=== PATIENT | female | born 1965 | race Two or more races ===

== ENCOUNTER 2019-01-11 06:06 | Emergency (ER) | payer OTHER ==
[~2019-01-11] VITALS: Ht 152.4 cm; Wt 77.1 kg
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
[2019-01-11] MEDS ORDERED: IBUPROFEN 200 MG TABLET. PO ONE (06:45)
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
[2019-01-11 07:42] VITALS: BP 136/66
== END 2019-01-11 07:49 | disposition home or self-care (01) ==
LOC: ER 06:06
DX: S16.1XXA Strain of muscle, fascia and tendon at neck level, initial encounter (principal); E03.9 Hypothyroidism, unspecified; Z88.0 Allergy status to penicillin; V43.52XA Car driver injured in collision with other type car in traffic accident, initial encounter; Y93.I9 Activity, other involving external motion; Y92.488 Other paved roadways as the place of occurrence of the external cause; Y99.8 Other external cause status
CPT/HCPCS: 72040; 99284

== ENCOUNTER 2019-10-11 21:18 | Inpatient (IN) | payer SELFPAY ==
[~2019-10-11] VITALS: Ht 157.5 cm; Wt 72.7 kg
--- NOTE | 2019-10-11 21:46 | PHYS DOC ---
Past Medical History Past Medical History: Hypothyroid Additional Past Medical Histor: thyroid diseasehypothyroidism Smoking Status: Never Smoker Alcohol Use: None Drug Use: None General Adult EDM: Chief Complaint: HEADACHE HPI: HPI: Patient is a 54 year old female who presents with complaint of headache and feeling hot all over after being at work where it was very hot and she had no water to drink. Patient states that she had poured a pitcher of water overhead but still feels hot all over. She states that her headache is over her entire head including her eyes and states that it is a 9 out of 10. She denies any nausea or vomiting. She denies any focal weakness. [] Review of Systems: Review of Systems: Constitutional: Denies fever or chills. [] Eyes: Denies change in visual acuity. [] Respiratory: Denies cough or shortness of breath. [] Cardiovascular: Denies chest pain or edema. [] Musculoskeletal: Denies back pain or joint pain. [] Integument: Denies rash. [] Neurologic: Complains of headache without focal weakness or sensory changes. [] A full 10 point review of systems has been reviewed and is otherwise negative. Heart Score: Risk Factors: Risk Factors: DM, Current or recent (<one month) smoker, HTN, HLP, family history of CAD, obesity. Risk Scores: Score 0 - 3: 2.5% MACE over next 6 weeks - Discharge Home Score 4 - 6: 20.3% MACE over next 6 weeks - Admit for Clinical Observation Score 7 - 10: 72.7% MACE over next 6 weeks - Early Invasive Strategies Allergies: Allergies: Allergies Coded Allergies Type Severity Reaction Last Updated Verified Penicillins Allergy Unknown 01/11/19 Yes Physical Exam: PE: Constitutional: Well developed, well nourished, no acute distress, non-toxic appearance. [] HENT: Normocephalic, atraumatic, bilateral external ears normal, oropharynx moist, no oral exudates, nose normal. [] Eyes: PERRLA, EOMI, conjunctiva normal, no discharge. [] Neck: Normal range of motion, no tenderness, supple. [] Cardiovascular: Regular rate and rhythm [] Lungs & Thorax: Bilateral breath sounds clear to auscultation [] Abdomen: Bowel sounds normal, soft, no tenderness. [] Skin: Warm, dry, no erythema, no rash. [] Extremities: No tenderness, no cyanosis, no clubbing, ROM intact. [] Neurologic: Alert and oriented X 3, no focal deficits noted. [] EKG: EKG: [] Radiology/Procedures: Radiology/Procedures: []PROCEDURE: CT HEAD WO CONTRAST Exam: CT head INDICATION: Headache TECHNIQUE: Sequential axial images through the head were obtained without the administration of IV contrast. Comparisons: None FINDINGS: No focal parenchymal lesion or hemorrhage is identified. There is no midline shift or sulcal effacement. No acute vascular territory infarction is identified. Rollins-white distinction is preserved. The ventricular system is within normal limits without compression hydrocephalus. The basal cisterns are well maintained. The visualized portions of the paranasal sinuses and mastoid air cells are well-pneumatized. No acute fractures. IMPRESSION: No acute intracranial abnormality. Exposure: One or more of the following in the visualized dose reduction techniques were utilized for this examination: 1. Automated exposure control 2. Adjustment of the MA and/or KV according to patient size Use of iterative of reconstructive technique Electronically signed by: Cyrus Heredia MD (10/11/2019 10:12 PM) [id number] Course & Med Decision Making: Course & Med Decision Making Pertinent Labs and Imaging studies reviewed. (See chart for details) [] Dragon Disclaimer: Dragon Disclaimer: This electronic medical record was generated, in whole or in part, using a voice recognition dictation system. Departure Departure Impression: Primary Impression: Hyponatremia Additional Impression: Headache Qualified Codes: R51 - Headache Disposition: 09 ADMITTED INPATIENT Admitting Physician: HIMS Condition: IMPROVED Referrals: JUSTINE HUFFMAN MD (PCP) Justicifation of Admission Dx: Justifications for Admission: Justification of Admission Dx: Yes Comments: Patient sodium 121 with neurological complaint of headache. NARENDRA GIBSON Jr. DO Oct 11, 2019 21:46
[2019-10-11 21:56] LABS: BILIRUBIN,URINE NEGATIVE (NEG); CLARITY,URINE CLEAR; COLOR,URINE YELLOW; NITRITE,URINE NEGATIVE (NEG); PH,URINE 7.5 (<5.0-8.0); PROTEIN,URINE NEGATIVE (NEG-TRACE); UROBILINOGEN,URINE 0.2 mg/dL (0.2 mg/dL)
[2019-10-11 21:57] LABS: BASO # 0.1 x10^3/uL (0.0-0.2); BASO % 1 % (0-3); EOS # 0.1 x10^3/uL (0.0-0.7); EOS % 1 % (0-3); HEMATOCRIT 36.2 % (36.0-47.0); HEMOGLOBIN 12.8 g/dL (12.0-15.5); LYMPH # 2.9 x10^3/uL (1.0-4.8); LYMPH % 28 % (24-48); MEAN CORPUSCULAR HEMOGLOBIN 31 pg (25-35); MEAN CORPUSCULAR HGB CONC 35 g/dL (31-37); MEAN CORPUSCULAR VOLUME 87 fL (79-100); MONO # 0.8 x10^3/uL (0.0-1.1); MONO % 8 % (0-9); NEUT # 6.5 x10^3/uL (1.8-7.7); NEUT % 63 % (31-73); PLATELET COUNT 399 x10^3/uL (140-400); RED BLOOD COUNT 4.16 x10^6/uL (3.50-5.40); RED CELL DISTRIBUTION WIDTH 12.7 % (11.5-14.5); WHITE BLOOD COUNT 10.3 x10^3/uL (4.0-11.0)
[2019-10-11 22:02] LABS: CALCIUM 8.1 mg/dL (8.5-10.1); CREATININE 0.7 mg/dL (0.6-1.0); GFR 86.9; POTASSIUM 3.3 mmol/L (3.5-5.1)
[2019-10-11 22:03] LABS: BACTERIA,URINE FEW /HPF (0-FEW); SQUAMOUS EPITHELIAL CELL,UR FEW /LPF
[2019-10-11 22:08] LABS: ALBUMIN 3.6 g/dL (3.4-5.0); ALBUMIN/GLOBULIN RATIO 0.9 (1.0-1.7); MAGNESIUM 1.6 mg/dL (1.8-2.4); TOTAL BILIRUBIN 0.4 mg/dL (0.2-1.0); TOTAL PROTEIN 7.4 g/dL (6.4-8.2)
--- NOTE | 2019-10-11 22:15 | RAD ---
Exam: CT head INDICATION: Headache TECHNIQUE: Sequential axial images through the head were obtained without the administration of IV contrast. Comparisons: None FINDINGS: No focal parenchymal lesion or hemorrhage is identified. There is no midline shift or sulcal effacement. No acute vascular territory infarction is identified. Rollins-white distinction is preserved. The ventricular system is within normal limits without compression hydrocephalus. The basal cisterns are well maintained. The visualized portions of the paranasal sinuses and mastoid air cells are well-pneumatized. No acute fractures. IMPRESSION: No acute intracranial abnormality. Exposure: One or more of the following in the visualized dose reduction techniques were utilized for this examination: 1. Automated exposure control 2. Adjustment of the MA and/or KV according to patient size Use of iterative of reconstructive technique Electronically signed by: Cyrus Heredia MD (10/11/2019 10:12 PM) [id number]
[2019-10-11] MEDS ORDERED: IV NORMAL SALINE 1000ML BAG 1,000 ML IV ONE ×2 (23:15)
[2019-10-11] MEDS ORDERED: ONDANSETRON PF 4 MG/2 ML VIAL. IV PRN (23:30)
[2019-10-11] MEDS ORDERED: MORPHINE SULFATE 2 MG/ML VIAL. IV PRN (23:30)
[2019-10-11] MEDS: IV NORMAL SALINE 1000ML BAG 1,000 ML IV SCH (23:31)
[2019-10-12] VITALS (12 sets, daily range): BP systolic 110–156; BP diastolic 39–80
[2019-10-12] MEDS ORDERED: IV NORMAL SALINE 1000ML BAG 1,000 ML IV ONE (03:45)
[2019-10-12 04:21] LABS: CALCIUM 8.8 mg/dL (8.5-10.1); CREATININE 0.7 mg/dL (0.6-1.0); GFR 86.9; POTASSIUM 3.7 mmol/L (3.5-5.1)
[2019-10-12 05:13] LABS: BASO % 1 % (0-3); EOS # 0.1 x10^3/uL (0.0-0.7); EOS % 1 % (0-3); HEMATOCRIT 36.9 % (36.0-47.0); HEMOGLOBIN 12.6 g/dL (12.0-15.5); LYMPH # 2.4 x10^3/uL (1.0-4.8); LYMPH % 30 % (24-48); MEAN CORPUSCULAR HEMOGLOBIN 30 pg (25-35); MEAN CORPUSCULAR HGB CONC 34 g/dL (31-37); MEAN CORPUSCULAR VOLUME 89 fL (79-100); MONO # 0.6 x10^3/uL (0.0-1.1); MONO % 8 % (0-9); NEUT # 4.8 x10^3/uL (1.8-7.7); NEUT % 60 % (31-73); PLATELET COUNT 411 x10^3/uL (140-400); RED BLOOD COUNT 4.15 x10^6/uL (3.50-5.40); RED CELL DISTRIBUTION WIDTH 12.7 % (11.5-14.5)
[2019-10-12 05:24] LABS: CALCIUM 8.3 mg/dL (8.5-10.1); CREATININE 0.6 mg/dL (0.6-1.0); GFR 103.8
--- NOTE | 2019-10-12 08:41 | RAD ---
Examination: CHEST AP ONLY History: Reason: acute diuresis w/ hyponatremia; ? mass / Spl. Instructions: / History: Comparison: None. Findings: AP portable upright frontal view of the chest was obtained. The cardiomediastinal silhouette is normal. Lungs are clear. There is no pneumothorax. No pleural effusion is appreciated. No acute bone abnormality. IMPRESSION: No acute cardiopulmonary process. Electronically signed by: Kodak Aldana MD (10/12/2019 8:38 AM) [id number]
[2019-10-12] MEDS: IV NORMAL SALINE 1000ML BAG 1,000 ML IV SCH (10:35)
[2019-10-12] MEDS ORDERED: LEVO100T5 PO (12:35)
[2019-10-13 03:17] VITALS: BP 154/66
[2019-10-13] MEDS ORDERED: LORazepam 0.5 MG TABLET PO PRN (07:15)
[2019-10-13] MEDS ORDERED: ALBUTEROL SULFATE 2.5 MG/3 ML NEBU. NEB PRN (07:15)
[2019-10-13] MEDS ORDERED: ZOLPIDEM 5 MG TABLET. PO PRN (07:15)
[2019-10-13] MEDS ORDERED: ACETAMINOPHEN 325 MG TABLET. PO PRN (07:15)
[2019-10-13] MEDS ORDERED: guaiFENesin ORAL 200 MG/10 ML LIQUID. PO PRN (07:15)
[2019-10-13] MEDS ORDERED: DOCUSATE SODIUM 100 MG CAPSULE. PO PRN (07:15)
[2019-10-13] MEDS ORDERED: ONDANSETRON PF 4 MG/2 ML VIAL. IV PRN (07:15)
[2019-10-13 07:46] VITALS: BP 153/69
[2019-10-13] MEDS: LISINOPRIL 20 MG TABLET PO SCH (08:53)
[2019-10-13] MEDS: BUTALB/APAP/CAFEIN 50/325/40MG TABLET. PO PRN ×2 (08:53→21:38)
[2019-10-13] MEDS ORDERED: PROCHLORPERAZINE 10 MG/2 ML VIAL. IV PRN (11:15)
[2019-10-13] MEDS ORDERED: KETOROLAC 30 MG/ML VIAL. IVP ONE (11:15)
[2019-10-13] MEDS ORDERED: DEXAMETHASONE SOD PHOS 4 MG/ML VIAL IVP ONE (11:15)
[2019-10-13 11:16] VITALS: BP 143/48
--- NOTE | 2019-10-13 11:20 | PDOC1 ---
History and Physical Date of Admission Date of Admission 10/12/2019 Identification/Chief Complaint Chief Complaint My head hurts Source Source: Chart review, Patient History of Present Illness History of Present Illness Patient is a 54-year-old female with past medical history of hypothyroidism who was in her usual state of health until day of her admission when after working apparently she felt hot all over her body and presented with frontal headache which started a 5 out of 10 intensity and gradually work throughout her head to an intensity of 10 out of 10. The patient had associated photophobia and she had nausea no vomiting was reported. Patient denies any history of migraines no allodynia was reported. The patient denies waking up in the mornings with headaches no signs of increased pressure on physical exam. Patient denies blurred vision no dysphagia odynophagia no slurred speech was reported either. 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 Patient has tried to remain hydrated with water and Gatorade but she seems to be quite dehydrated at the present time. She was found to be severely hyponatremic reason why we were asked to admit the patient to the floor. There is also her headache. ER history: Patient is a 54 year old female who presents with complaint of headache and feeling hot all over after being at work where it was very hot and she had no water to drink. Patient states that she had poured a pitcher of water overhead but still feels hot all over. She states that her headache is over her entire head including her eyes and states that it is a 9 out of 10. She denies any nausea or vomiting. She denies any focal weakness. [] Past Medical History Endocrine: Hyperthyroidism Past Surgical History Past Surgical History: No pertinent history Family History Family History: Other (Reviewed and found negative noncontributory to the present) Social History Smoke: No ALCOHOL: none Drugs: None Current Problem List Problem List Problems Medical Problems: (1) Headache Status: Acute (2) Hyponatremia Status: Acute Current Medications Current Medications Current Medications Medications (Trade) Dose Ordered Sig/Naz Start Time Stop Time Status Last Admin Dose Admin Acetaminophen (Tylenol) 650 mg PRN Q4HRS PRN 10/13/19 07:15 Acetaminophen/ Butalbital/ Caffeine (Fioricet) 1 tab PRN Q6HRS PRN 10/13/19 07:15 10/13/19 08:53 1 TAB Albuterol Sulfate (Ventolin Neb Soln) 2.5 mg PRN Q4HRS PRN 10/13/19 07:15 Docusate Sodium (Colace) 100 mg PRN BID PRN 10/13/19 07:15 Guaifenesin (Robitussin) 200 mg PRN Q4HRS PRN 10/13/19 07:15 Lisinopril (Prinivil) 20 mg DAILY 10/13/19 07:15 10/13/19 08:53 20 MG Lorazepam (Ativan) 0.5 mg PRN Q4HRS PRN 10/13/19 07:15 Morphine Sulfate (Morphine Sulfate) 2 mg PRN Q2HR PRN 10/11/19 23:30 10/12/19 23:29 DC Ondansetron HCl (Zofran) 4 mg PRN Q4HRS PRN 10/13/19 07:15 Sodium Chloride 1,000 ml @ 1,000 mls/hr 1X ONCE 10/12/19 03:45 10/12/19 04:44 DC Zolpidem Tartrate (Ambien) 5 mg PRN QHS PRN 10/13/19 07:15 Allergies Allergies Allergies Coded Allergies Type Severity Reaction Last Updated Verified Penicillins Allergy Unknown 01/11/19 Yes ROS Review of System CONSTITUTIONAL: No fever or chills EYES: No recent changes SKIN: No rash or itching CARDIOVASCULAR: No chest pain, syncope, palpitations, or edema RESPIRATORY: No SOB or cough GASTROINTESTINAL: No nausea, vomiting or abdominal pain NEUROLOGICAL: No headaches or weakness ENDOCRINE: No cold or heat intolerance GENITOURINARY: No urgency or frequency of urination MUSCULOSKELETAL: No back pain or joint pain LYMPHATICS: No enlarged lymph nodes PSYCHIATRIC: No anxiety or depression Physical Exam Physical Exam GEN.: No apparent distress. Alert and oriented. HEENT: Head is normocephalic, atraumatic NECK: Supple. LUNGS: Clear to auscultation. HEART: RRR, S1, S2 present. Peripheral pulses intact ABDOMEN: Soft, nontender. Positive bowel sounds. EXTREMITIES: Without any cyanosis. NEUROLOGIC: Normal speech, normal tone PSYCHIATRIC: Normal affect, normal mood. SKIN: No ulcerations Vitals Vitals Vital Signs Date Time Temp Pulse Resp B/P (MAP) Pulse Ox O2 Delivery O2 Flow Rate FiO2 10/13/19 08:53 74 153/69 10/13/19 08:00 Room Air 10/13/19 07:58 100 10/13/19 07:46 97.9 18 97.9 Labs Labs Laboratory Tests Test 10/11/19 21:30 10/12/19 04:03 10/12/19 05:05 10/12/19 07:05 White Blood Count 10.3 x10^3/uL (4.0-11.0) 8.0 x10^3/uL (4.0-11.0) Red Blood Count 4.16 x10^6/uL (3.50-5.40) 4.15 x10^6/uL (3.50-5.40) Hemoglobin 12.8 g/dL (12.0-15.5) 12.6 g/dL (12.0-15.5) Hematocrit 36.2 % (36.0-47.0) 36.9 % (36.0-47.0) Mean Corpuscular Volume 87 fL (79-100) 89 fL (79-100) Mean Corpuscular Hemoglobin 31 pg (25-35) 30 pg (25-35) Mean Corpuscular Hemoglobin Concent 35 g/dL (31-37) 34 g/dL (31-37) Red Cell Distribution Width 12.7 % (11.5-14.5) 12.7 % (11.5-14.5) Platelet Count 399 x10^3/uL (140-400) 411 x10^3/uL (140-400) Neutrophils (%) (Auto) 63 % (31-73) 60 % (31-73) Lymphocytes (%) (Auto) 28 % (24-48) 30 % (24-48) Monocytes (%) (Auto) 8 % (0-9) 8 % (0-9) Eosinophils (%) (Auto) 1 % (0-3) 1 % (0-3) Basophils (%) (Auto) 1 % (0-3) 1 % (0-3) Neutrophils # (Auto) 6.5 x10^3/uL (1.8-7.7) 4.8 x10^3/uL (1.8-7.7) Lymphocytes # (Auto) 2.9 x10^3/uL (1.0-4.8) 2.4 x10^3/uL (1.0-4.8) Monocytes # (Auto) 0.8 x10^3/uL (0.0-1.1) 0.6 x10^3/uL (0.0-1.1) Eosinophils # (Auto) 0.1 x10^3/uL (0.0-0.7) 0.1 x10^3/uL (0.0-0.7) Basophils # (Auto) 0.1 x10^3/uL (0.0-0.2) 0.0 x10^3/uL (0.0-0.2) Urine Collection Type Unknown Urine Color Yellow Urine Clarity Clear Urine pH 7.5 (<5.0-8.0) Urine Specific [place] <=1.005 (1.000-1.030) Urine Protein Negative mg/dL (NEG-TRACE) Urine Glucose (UA) Negative mg/dL (NEG) Urine Ketones (Stick) Negative mg/dL (NEG) Urine Blood Negative (NEG) Urine Nitrite Negative (NEG) Urine Bilirubin Negative (NEG) Urine Urobilinogen Dipstick 0.2 mg/dL (0.2 mg/dL) Urine Leukocyte Esterase Trace (NEG) Urine RBC 1-2 /HPF (0-2) Urine WBC 1-4 /HPF (0-4) Urine Squamous Epithelial Cells Few /LPF Urine Bacteria Few /HPF (0-FEW) Sodium Level 121 mmol/L (136-145) 137 mmol/L (136-145) 141 mmol/L (136-145) Potassium Level 3.3 mmol/L (3.5-5.1) 3.7 mmol/L (3.5-5.1) 4.0 mmol/L (3.5-5.1) Chloride Level 87 mmol/L (98-107) 102 mmol/L (98-107) 107 mmol/L (98-107) Carbon Dioxide Level 26 mmol/L (21-32) 27 mmol/L (21-32) 28 mmol/L (21-32) Anion Gap 8 (6-14) 8 (6-14) 6 (6-14) Blood Urea Nitrogen 8 mg/dL (7-20) 9 mg/dL (7-20) 8 mg/dL (7-20) Creatinine 0.7 mg/dL (0.6-1.0) 0.7 mg/dL (0.6-1.0) 0.6 mg/dL (0.6-1.0) Estimated GFR (Cockcroft-Gault) 86.9 86.9 103.8 BUN/Creatinine Ratio 11 (6-20) Glucose Level 135 mg/dL (70-99) 121 mg/dL (70-99) 114 mg/dL (70-99) Calcium Level 8.1 mg/dL (8.5-10.1) 8.8 mg/dL (8.5-10.1) 8.3 mg/dL (8.5-10.1) Magnesium Level 1.6 mg/dL (1.8-2.4) Total Bilirubin 0.4 mg/dL (0.2-1.0) Aspartate Amino Transf (AST/SGOT) 27 U/L (15-37) Alanine Aminotransferase (ALT/SGPT) 26 U/L (14-59) Alkaline Phosphatase 98 U/L (46-116) Total Protein 7.4 g/dL (6.4-8.2) Albumin 3.6 g/dL (3.4-5.0) Albumin/Globulin Ratio 0.9 (1.0-1.7) Cortisol AM Sample 10.4 ug/dL (4.3-22.4) VTE Prophylaxis Ordered VTE Prophylaxis Devices: Yes VTE Pharmacological Prophylaxi: No Justicifation of Admission Dx: Justifications for Admission: Justification of Admission Dx: Comment: (Severe hyponatremia) HELEN DUKE MD Oct 13, 2019 11:20
--- NOTE | 2019-10-13 11:21 | PDOC ---
PROGRESS NOTES Chief Complaint Chief Complaint Severe hyponatremia Migraine headache History of acquired hypothyroidism Hypokalemia Plan We will request urine Thyroid function test Resume home medications once available for review Pain management DVT prophylaxis with Lovenox History of Present Illness History of Present Illness Still complaining of headache, reassurance has been provided, no meningeal signs present, plan of care explained in detail, all of her concerns were addressed to the best of my abilities Vitals Vitals Vital Signs Date Time Temp Pulse Resp B/P (MAP) Pulse Ox O2 Delivery O2 Flow Rate FiO2 10/13/19 08:53 74 153/69 10/13/19 08:00 Room Air 10/13/19 07:58 100 10/13/19 07:46 97.9 18 97.9 Physical Exam Physical Exam Gen.: well-developed well-nourished in acute apparent distress Head: Normal shape atraumatic Eyes: Pupils equal reactive to light and accommodation, normal conjunctivae and lids Ears: Normal shape Nose: Normal shape no trauma Mouth: No exudates of the back of throat no thrush no lesions Neck: Supple no JVD no carotid bruit or lymphadenopathy no thyromegaly Chest: Lungs clear to auscultation with good inspiratory effort no crackles rales or rhonchi Cardiovascular: S1-S2 regular rhythm no murmurs gallops or rubs Abdomen: Bowel sounds present soft nontender no hepatosplenomegaly appreciated sign Extremities: No clubbing no cyanosis no edema peripheral pulses palpated bilaterally Neurological: Alert awake oriented in person time place and situation, cranial nerves II through XII intact, no motor or sensory deficits appreciated Psych: Appropriate mood, cooperative Review of Systems Review of Systems Pertinent as per HPI otherwise 10 point review of system is negative Assessment and Plan Assessmemt and Plan Problems Medical Problems: (1) Headache Status: Acute (2) Hyponatremia Status: Acute Comment Review of Relevant I have reviewed the following items hector (where applicable) has been applied. Labs Laboratory Tests Test 10/11/19 21:30 10/12/19 04:03 10/12/19 05:05 10/12/19 07:05 White Blood Count 10.3 x10^3/uL (4.0-11.0) 8.0 x10^3/uL (4.0-11.0) Red Blood Count 4.16 x10^6/uL (3.50-5.40) 4.15 x10^6/uL (3.50-5.40) Hemoglobin 12.8 g/dL (12.0-15.5) 12.6 g/dL (12.0-15.5) Hematocrit 36.2 % (36.0-47.0) 36.9 % (36.0-47.0) Mean Corpuscular Volume 87 fL (79-100) 89 fL (79-100) Mean Corpuscular Hemoglobin 31 pg (25-35) 30 pg (25-35) Mean Corpuscular Hemoglobin Concent 35 g/dL (31-37) 34 g/dL (31-37) Red Cell Distribution Width 12.7 % (11.5-14.5) 12.7 % (11.5-14.5) Platelet Count 399 x10^3/uL (140-400) 411 x10^3/uL (140-400) Neutrophils (%) (Auto) 63 % (31-73) 60 % (31-73) Lymphocytes (%) (Auto) 28 % (24-48) 30 % (24-48) Monocytes (%) (Auto) 8 % (0-9) 8 % (0-9) Eosinophils (%) (Auto) 1 % (0-3) 1 % (0-3) Basophils (%) (Auto) 1 % (0-3) 1 % (0-3) Neutrophils # (Auto) 6.5 x10^3/uL (1.8-7.7) 4.8 x10^3/uL (1.8-7.7) Lymphocytes # (Auto) 2.9 x10^3/uL (1.0-4.8) 2.4 x10^3/uL (1.0-4.8) Monocytes # (Auto) 0.8 x10^3/uL (0.0-1.1) 0.6 x10^3/uL (0.0-1.1) Eosinophils # (Auto) 0.1 x10^3/uL (0.0-0.7) 0.1 x10^3/uL (0.0-0.7) Basophils # (Auto) 0.1 x10^3/uL (0.0-0.2) 0.0 x10^3/uL (0.0-0.2) Urine Collection Type Unknown Urine Color Yellow Urine Clarity Clear Urine pH 7.5 (<5.0-8.0) Urine Specific [place] <=1.005 (1.000-1.030) Urine Protein Negative mg/dL (NEG-TRACE) Urine Glucose (UA) Negative mg/dL (NEG) Urine Ketones (Stick) Negative mg/dL (NEG) Urine Blood Negative (NEG) Urine Nitrite Negative (NEG) Urine Bilirubin Negative (NEG) Urine Urobilinogen Dipstick 0.2 mg/dL (0.2 mg/dL) Urine Leukocyte Esterase Trace (NEG) Urine RBC 1-2 /HPF (0-2) Urine WBC 1-4 /HPF (0-4) Urine Squamous Epithelial Cells Few /LPF Urine Bacteria Few /HPF (0-FEW) Sodium Level 121 mmol/L (136-145) 137 mmol/L (136-145) 141 mmol/L (136-145) Potassium Level 3.3 mmol/L (3.5-5.1) 3.7 mmol/L (3.5-5.1) 4.0 mmol/L (3.5-5.1) Chloride Level 87 mmol/L (98-107) 102 mmol/L (98-107) 107 mmol/L (98-107) Carbon Dioxide Level 26 mmol/L (21-32) 27 mmol/L (21-32) 28 mmol/L (21-32) Anion Gap 8 (6-14) 8 (6-14) 6 (6-14) Blood Urea Nitrogen 8 mg/dL (7-20) 9 mg/dL (7-20) 8 mg/dL (7-20) Creatinine 0.7 mg/dL (0.6-1.0) 0.7 mg/dL (0.6-1.0) 0.6 mg/dL (0.6-1.0) Estimated GFR (Cockcroft-Gault) 86.9 86.9 103.8 BUN/Creatinine Ratio 11 (6-20) Glucose Level 135 mg/dL (70-99) 121 mg/dL (70-99) 114 mg/dL (70-99) Calcium Level 8.1 mg/dL (8.5-10.1) 8.8 mg/dL (8.5-10.1) 8.3 mg/dL (8.5-10.1) Magnesium Level 1.6 mg/dL (1.8-2.4) Total Bilirubin 0.4 mg/dL (0.2-1.0) Aspartate Amino Transf (AST/SGOT) 27 U/L (15-37) Alanine Aminotransferase (ALT/SGPT) 26 U/L (14-59) Alkaline Phosphatase 98 U/L (46-116) Total Protein 7.4 g/dL (6.4-8.2) Albumin 3.6 g/dL (3.4-5.0) Albumin/Globulin Ratio 0.9 (1.0-1.7) Cortisol AM Sample 10.4 ug/dL (4.3-22.4) Microbiology 10/11/19 Urine Culture - Preliminary, Resulted Medications Current Medications Sodium Chloride 1,000 ml @ 1,000 mls/hr 1X ONCE IV Last administered on 10/11/19at 23:07; Admin Dose 1,000 MLS/HR; Start 10/11/19 at 23:15; Stop 10/12/19 at 00:14; Status DC Sodium Chloride 1,000 ml @ 60 mls/hr 1X ONCE IV Last administered on 10/11/19at 00:20; Admin Dose 60 MLS/HR; Start 10/11/19 at 23:15; Stop 10/12/19 at 15:54; Status DC Ondansetron HCl (Zofran) 4 mg PRN Q8HRS PRN IV NAUSEA/VOMITING; Start 10/11/19 at 23:30; Stop 10/12/19 at 23:29; Status DC Morphine Sulfate (Morphine Sulfate) 2 mg PRN Q2HR PRN IV PAIN; Start 10/11/19 at 23:30; Stop 10/12/19 at 23:29; Status DC Sodium Chloride 1,000 ml @ 60 mls/hr [id number] IV Last administered on 10/12/19at 10:35; Admin Dose 60 MLS/HR; Start 10/11/19 at 23:18; Stop 10/12/19 at 23:17; Status DC Sodium Chloride 1,000 ml @ 1,000 mls/hr 1X ONCE IV ; Start 10/12/19 at 03:45; Stop 10/12/19 at 04:44; Status DC Ondansetron HCl (Zofran) 4 mg PRN Q4HRS PRN IV NAUSEA/VOMITING; Start 10/13/19 at 07:15 Zolpidem Tartrate (Ambien) 5 mg PRN QHS PRN PO INSOMNIA; Start 10/13/19 at 07:15 Acetaminophen (Tylenol) 650 mg PRN Q4HRS PRN PO TEMP OVER 100.4F OR MILD PAIN; Start 10/13/19 at 07:15 Docusate Sodium (Colace) 100 mg PRN BID PRN PO HARD STOOLS; Start 10/13/19 at 07:15 Albuterol Sulfate (Ventolin Neb Soln) 2.5 mg PRN Q4HRS PRN NEB SHORTNESS OF BREATH; Start 10/13/19 at 07:15 Guaifenesin (Robitussin) 200 mg PRN Q4HRS PRN PO COUGH; Start 10/13/19 at 07:15 Lorazepam (Ativan) 0.5 mg PRN Q4HRS PRN PO ANXIETY / AGITATION; Start 10/13/19 at 07:15 Acetaminophen/ Butalbital/ Caffeine (Fioricet) 1 tab PRN Q6HRS PRN PO MIGRAINE HEADACHE Last administered on 10/13/19at 08:53; Admin Dose 1 TAB; Start 10/13/19 at 07:15 Lisinopril (Prinivil) 20 mg DAILY PO Last administered on 10/13/19at 08:53; Admin Dose 20 MG; Start 10/13/19 at 07:15 Active Scripts Active Reported Levothyroxine Sodium 100 Mcg Tablet 1 Tab PO DAILY Vitals/I & O Vital Sign - Last 24 Hours 10/12/19 10/12/19 10/12/19 10/12/19 12:00 13:00 15:03 19:52 Temp 97.9 97.9 97.9 97.9 Pulse 80 75 80 76 Resp 16 14 16 20 B/P (MAP) 134/52 (79) 112/39 (63) 110/68 (82) 116/53 (74) Pulse Ox 100 100 98 99 O2 Delivery Room Air Room Air Room Air Room Air 10/12/19 10/13/19 10/13/19 10/13/19 23:31 03:17 07:46 07:58 Temp 97.5 97.6 97.9 97.5 97.6 97.9 Pulse 80 70 74 Resp 20 20 18 B/P (MAP) 156/57 (90) 154/66 (95) 153/69 (97) Pulse Ox 100 100 100 100 O2 Delivery Room Air Room Air Room Air Room Air 10/13/19 10/13/19 08:00 08:53 Pulse 74 B/P (MAP) 153/69 O2 Delivery Room Air Intake and Output 10/12/19 10/12/19 10/13/19 15:00 23:00 07:00 Intake Total 2140 ml 310 ml Output Total 2565 ml 2100 ml 600 ml Balance -425 ml -2100 ml -290 ml HELEN DUKE MD Oct 13, 2019 11:21
[2019-10-13] MEDS: LEVOTHYROXINE 100 MCG TABLET PO SCH (12:05)
[2019-10-13 12:11] LABS: HEMATOCRIT 40.1 % (36.0-47.0); HEMOGLOBIN 13.8 g/dL (12.0-15.5); RED BLOOD COUNT 4.54 x10^6/uL (3.50-5.40); RED CELL DISTRIBUTION WIDTH 13.3 % (11.5-14.5); WHITE BLOOD COUNT 7.6 x10^3/uL (4.0-11.0)
[2019-10-13 12:23] LABS: CREATININE 0.7 mg/dL (0.6-1.0); GFR 86.9; POTASSIUM 3.7 mmol/L (3.5-5.1)
[2019-10-13 12:36] LABS: THYROID STIM HORMONE (TSH) 11.24 uIU/mL (0.358-3.74)
[2019-10-13 15:45] VITALS: BP 132/67
[2019-10-13 19:59] VITALS: BP 120/60
[2019-10-13 23:21] VITALS: BP 117/52
[2019-10-14 03:44] VITALS: BP 135/61
[2019-10-14] MEDS: LEVOTHYROXINE 100 MCG TABLET PO SCH (05:53)
[2019-10-14 07:46] VITALS: BP 141/70
[2019-10-14] MEDS: LISINOPRIL 20 MG TABLET PO SCH (09:12)
[2019-10-14 11:42] VITALS: BP 131/58
--- NOTE | 2019-10-14 14:54 | DS ---
DATE OF DISCHARGE: 10/14/2019 ADMISSION DIAGNOSIS: Hyponatremia. DISCHARGE DIAGNOSIS: Resolving hyponatremia. HOSPITAL COURSE: The patient is a pleasant middle-aged female who presented with body aches and feeling hot and headache. She is noted to have severe hyponatremia with a sodium of 121. She was admitted. We gave her normal saline and today when I saw her, she was at her baseline. Her sodium is back to normal at 139. Clinically, she looks great. Her TSH was a little high at 11.24, although she is already on Synthroid. I am going to give her an increased dose of her Synthroid and let her go home. DISPOSITION: Home. ACTIVITY: As tolerated. DIET: Low sodium. MEDICATIONS: Please see the MRAD. TOTAL TIME: 34 minutes. TAMARA JANG DO DR: AARON/daryl JOB#: [id number] / [id number]
[2019-10-21 11:12] LABS: CORTISOL UR 8 ug/L (Undefined)
== END 2019-10-14 14:15 | disposition home or self-care (01) | DRG 641 ==
LOC: ER 21:18 → ED HOLD 23:18 → 6 SOUTH 10-12
PROVIDERS: ADMIT Internal Medicine; ATTEND Internal Medicine
DX: E87.1 Hypo-osmolality and hyponatremia (principal); E03.9 Hypothyroidism, unspecified; E86.0 Dehydration; E87.6 Hypokalemia; G43.909 Migraine, unspecified, not intractable, without status migrainosus; Z88.0 Allergy status to penicillin
CPT/HCPCS: 36415; 70450; 71045; 80048; 80053; 81001; 82024; 82530; 82533; 83735; 83930; 83935; 84439; 84443; 85025; 85027; 87086; 94760; 96360; J1100; J1885; J7030; 99285-25; G0378